=== PATIENT | female | born 1945 | race African-American/Black ===

== ENCOUNTER 2016-09-29 12:44 | Inpatient (IN) ==
[2016-09-29] MEDS ORDERED: MAGNESIUM SULF RIDER 2 GM in PREMIX 1 EACH IV PRN (15:29)
[2016-09-29] MEDS ORDERED: ONDANSETRON 4 MG/2 ML VIAL IV PRN (15:29)
[2016-09-29] MEDS ORDERED: ZALEPLON 5 MG CAPSULE PO PRN (15:29)
[2016-09-29] MEDS ORDERED: ACETAMINOPHEN 325 MG TABLET PO PRN (15:29)
[2016-09-29] MEDS ORDERED: DOCUSATE SODIUM 100 MG CAPSULE PO PRN (15:29)
[2016-09-29] MEDS ORDERED: MAGNESIUM SULF RIDER 4 GM in PREMIX 1 EACH IV PRN (15:29)
[2016-09-29] MEDS: PANTOPRAZOLE 40 MG TABLET PO SCH (15:52)
[2016-09-29 16:17] LABS: Basophils # 0.1 10*3/uL (0.0-0.2); Basophils % 0.7 % (0.0-0.8); Eosinophils # 0.1 10*3/uL (0.0-0.87); Eosinophils % 1.4 % (0.00-10.9); Hematocrit 34.3 VOL% (35.7-47.0); Hemoglobin 11.4 GM/DL (12.0-16.0); Immature Granulocytes % 0.3 %; Immature Granulocytes Absolute 0.03 #; Lymphocytes # 1.7 10*3/uL (1.4-4.0); Lymphocytes % 19.2 % (21.3-54.2); Mean Corpuscular HGB Conc 33.2 GM/DL (32-36); Mean Corpuscular Hemoglobin 29 PG (27-34); Mean Corpuscular Volume 88.4 FL (87-102); Monocytes # 0.7 10*3/uL (0.11-0.8); Monocytes % 8.3 % (1.7-12.7); Neutrophils % 70.1 % (38.7-73.9); Platelet Count 181 T/CUMM (130-400); Red Blood Count 3.88 MC/CUMM (3.8-5.5); Red Cell Distribution Width 13.9 % (9.3-17.3); White Blood Count 8.6 T/CUMM (4-12)
--- NOTE | 2016-09-29 16:24 | Event Note ---
Patient was directly admitted from Dr. Bledsoe's office at cardiovascular [place] [facility] the [facility]. Patient has a history of a syncopal episode on Mother' s Day. She fell and hit her floor and required 17 stitches in her head. She reported atypical chest pain but did report some heaviness with extraordinary activity. She reported pain and swelling of her left leg shortly before her syncopal episode. Dr. Bledsoe ordered venous Dopplers of bilateral lower extremities. Identified was a left lower popliteal vein thrombus. She was directly admitted and underwent CT chest, PE protocol. Impression: No definitive segmental or larger pulmonary embolism. Other findings are similar to the August 10, 2016 as detailed in report. Patient has been given aspirin, Lovenox. Echocardiogram has been ordered as are labs and EKG. Dr. Bledsoe believes patient needs Lexiscan stress testing and I will keep her n.p.o. after midnight tonight for this procedure. Should the patient require cardiac catheterization, will proceed accordingly and afterwards she may be a candidate for NO AC at that point. Until we definitively rule out the need for cardiac catheterization, she will be covered with therapeutic doses of Lovenox twice daily.
[2016-09-29 16:54] LABS: Troponin I Only < 0.015 NG/ML (0.00-0.045)
[2016-09-29 16:56] LABS: Albumin 3.7 G/DL (3.4-5.0); Bilirubin,Total 0.5 MG/DL (0.2-1.0); Calcium 8.8 MG/DL (8.5-10.1); Osmolality,Calculated 280.4 MOS/KG (273-304); Potassium 3.5 MMOL/L (3.5-5.1); Thyroid Stimulating Hormone 1.45 uIU/ml (0.358-3.74)
[2016-09-29] MEDS: SODIUM CHLORIDE 0.45% 1,000 ML IV SCH (16:57)
[2016-09-29] MEDS: TAMOXIFEN 10 MG TABLET PO SCH (16:57)
[2016-09-29] MEDS: METOPROLOL TARTRATE 25 MG TABLET PO SCH ×2 (16:57→22:18)
[2016-09-29] MEDS: ENOXAPARIN 80 MG/0.8 ML SYRINGE SUBCUT SCH (16:57)
[2016-09-29 20:44] LABS: Apearance,Urine CLEAR (Clear); Bacteria,Urine Occasional /HPF (Few); Bilirubin,Urine Negative (Negative); Blood, Urine Negative (Negative); Glucose,Urine (UA) Negative (Negative); Ketones,Urine Negative (Negative); Mucus,Urine Occasional /LPF (Occasional); Nitrite,Urine Negative (Negative); Protein,Urine Negative; RBC,Urine 1 /HPF (0-4); Squamous Epithelial Cell,Urine Occasional /HPF (0-10); Urine Color Straw (Yellow); Urine Specific Gravity 1.018 (1.001-1.035); Urine Urobilinogen < 2.0 EU/DL (0.2-1.0); WBC,Urine 1 /HPF (0-6)
[2016-09-30 00:53] LABS: Troponin I Only < 0.015 NG/ML (0.00-0.045)
[2016-09-30] MEDS: SODIUM CHLORIDE 0.45% 1,000 ML IV SCH (02:12)
[2016-09-30] MEDS: ENOXAPARIN 80 MG/0.8 ML SYRINGE SUBCUT SCH ×2 (05:30→16:43)
[2016-09-30 07:58] LABS: Calcium 8.1 MG/DL (8.5-10.1); Magnesium 1.8 MG/DL (1.8-2.4); Osmolality,Calculated 278.5 MOS/KG (273-304); Potassium 3.6 MMOL/L (3.5-5.1)
[2016-09-30 07:58] LABS: Basophils # 0.1 10*3/uL (0.0-0.2); Basophils % 0.8 % (0.0-0.8); Eosinophils # 0.3 10*3/uL (0.0-0.87); Eosinophils % 3.9 % (0.00-10.9); Hematocrit 30.7 VOL% (35.7-47.0); Hemoglobin 10.3 GM/DL (12.0-16.0); Immature Granulocytes % 0.5 %; Immature Granulocytes Absolute 0.03 #; Lymphocytes # 1.4 10*3/uL (1.4-4.0); Lymphocytes % 21.4 % (21.3-54.2); Mean Corpuscular HGB Conc 33.6 GM/DL (32-36); Mean Corpuscular Hemoglobin 30 PG (27-34); Mean Corpuscular Volume 90.6 FL (87-102); Mean Platelet Volume 10.6 FL (9.6-12.0); Monocytes # 0.6 10*3/uL (0.11-0.8); Monocytes % 9.4 % (1.7-12.7); Neutrophils # 4.1 10*3/uL (1.4-7.4); Platelet Count 158 T/CUMM (130-400); Red Blood Count 3.39 MC/CUMM (3.8-5.5); White Blood Count 6.4 T/CUMM (4-12)
[2016-09-30 08:17] LABS: Risk Ratio 1.84; VLDL CHOLESTEROL 14.2 MG/DL
--- NOTE | 2016-09-30 08:20 | EKG Report ---
Stationary ECG Study [facility] Test Date: 09/30/2016 6:51:33 AM Pat Name: SALOMON ALFONSO Department: Room: 280 Gender: F [employer]ipes Assembler: TONY : 1945 Requested by: Deepali Soriano Order Number: [id number] Reading MD: DARIEL ACOSTA Intervals [place] Rate: 85 P: 46 SD: 191 QRS: -9 QRSD: 129 T: 32 QT: 420 QTc: 462 Interpretive Statements SINUS RHYTHM RIGHT BUNDLE BRANCH BLOCK Electronically Signed On 10-03-16 15:18:54 CDT by DARIEL ACOSTA [email or web address]
[2016-09-30 08:37] LABS: Troponin I Only < 0.015 NG/ML (0.00-0.045)
[2016-09-30] MEDS: GLIMEPIRIDE 2 MG TABLET PO SCH (09:05)
[2016-09-30] MEDS: TRIAMTERENE/HCTZ 37.5-25 MG CAPSULE PO SCH (12:56)
[2016-09-30] MEDS: ASPIRIN CHEW 81 MG TABLET PO SCH (14:24)
--- NOTE | 2016-09-30 14:24 | ECHO Report ---
Allison Delacruz Exam Date: 09/30/2016 10:26 Referring Physician: Technologist: Age: 71 Ht (in): Wt (lb): Gender: F Exam Location: [facility] [place] Echo Indications: BP: / HR: Rhythm: Sinus Technical Quality: IMPRESSIONS Technically limited study. Normal left ventricular size, with mild concentric hypertrophy. Abnormal septal motion, with normal systolic function. Estimated left ventricular ejection fraction 55%. Mild left atrial enlargement. Mitral annular calcification. The mitral valve is thickened, with trace insufficiency, without stenosis. Aortic valve sclerosis, without stenosis, with mild insufficiency. MEASUREMENTS (Male / Female) Normal Values 2D ECHO LV Diastolic Diameter PLAX 3.1 cm 4.2 - 5.9 / 3.9 - 5.3 cm LV Systolic Diameter PLAX 2.4 cm LV Fractional Shortening PLAX 21.7 % IVS Diastolic Thickness 1.2 cm 0.6 - 1.0 / 0.6 - 0.9 cm LVPW Diastolic Thickness 1.1 cm 0.6 - 1.0 / 0.6 - 0.9 cm RV Internal Dim ED PLAX 2.4 cm Aortic Root Diameter 2.5 cm LA Systolic Diameter LX 2.6 cm 3.0 - 4.0 / 2.7 - 3.8 cm DOPPLER TR Peak Velocity 252.0 cm/s TR Peak Gradient 25.4 mmHg FINDINGS Left Ventricle Normal left ventricular size, with mild concentric hypertrophy. Abnormal septal motion, with normal systolic function. Estimated left ventricular ejection fraction 55%. Insufficient data to estimate diastolic function. Right Ventricle The right ventricle is normal in size, with normal systolic function. Right Atrium Normal right atrial size. Left Atrium Mildly dilated left atrium. Mitral Valve Mitral annular calcification. The mitral valve is thickened, with trace insufficiency, without stenosis. Aortic Valve Aortic valve sclerosis, without stenosis, with mild insufficiency. Tricuspid Valve Structurally normal valve, with trace insufficiency. Estimated pulmonary artery systolic pressure 35 mmHg. Pulmonic Valve Not visualized. Pericardium No pericardial effusion Aorta Not visualized. Keo Blackwell (Electronically Signed) Final Date: 30 Sep 2016 14:23
[2016-09-30] MEDS: ATORVASTATIN 20 MG TABLET PO SCH (14:25)
[2016-09-30] MEDS: PANTOPRAZOLE 40 MG TABLET PO SCH (14:30)
[2016-09-30] MEDS: METOPROLOL TARTRATE 25 MG TABLET PO SCH ×2 (14:31→22:32)
--- NOTE | 2016-09-30 14:49 | Cardiology Progress Note ---
Assessment and Plan (1) Syncope Status: Acute Assessment and plan: 71-year-old black female, followed by Dr. Bledsoe. Recent syncope. She has DVT , but CT angle angiogram was inconclusive for PE. Right bundle branch block, normal heart rate trend on telemetry. She is wearing the Holter. She also had some intermittent chest pain. No IL. No significant cardiomyopathy on echo. Pulmonary pressure is normal. She does not have orthostatic complaints. -Continue anticoagulation with Lovenox. -Continue aspirin, metoprolol, statin for suspected CAD. -Proceed with pharmacological stress test in a.m. NPO after MN -If she does not have significant CAD, plan to discharge home tomorrow, on anticoagulation. Follow up with Dr. Bledsoe -T2DM. Cont current regimen. -HTN. BPM well controlled. Current Visit: Yes (2) T2DM (type 2 diabetes mellitus) Status: Acute Current Visit: Yes (3) Aortic valve sclerosis Status: Acute Current Visit: Yes (4) DVT (deep venous thrombosis) Status: Acute Current Visit: Yes Cardiology - PN: Subj Interval history: She is feeling better. The left lower extremity is still swollen. Sinus rhythm , occasional sinus tachycardia. Occasional mild chest pain. Blood pressure is stable Exam (Progress Note) - Constitutional Vitals: Period Temp Pulse Resp BP Sys/Lu Pulse Ox Last 24 Hr 97.2 F-99.3 F 79-106 16-20 101-139/51-74 97-100 General appearance: normal weight, over weight - Head Head exam: Present: normal inspection, normocephalic - Eye Eye exam: Absent: conjunctival injection Pupils: Absent: dilated - ENT ENT exam: Present: normal external ear exam - Neck Neck exam: Present: normal inspection - Respiratory Respiratory exam: Present: clear to auscultation bilaterally - Cardiovascular Cardiovascular exam: Present: regular rate and rhythm, systolic murmur - GI/Abdominal GI/Abdominal exam: Present: normal bowel sounds - Extremities Exam Extremities exam: Present: normal inspection, normal capillary refill, edema ( Left lower extremity swollen.) - Neurological Exam Neurological exam: Present: alert, oriented X3 - Psychiatric Psychiatric exam: Present: normal affect, normal mood - Skin Skin exam: Present: normal color, warm. Absent: cyanosis Result/EKG - Labs CBC & BMP: 09/30/16 07:50 05/25/17 06:59 Lab Results: I have reviewed the past 24 hour labs Labs: Laboratory Results - last 24 hr 09/29/16 09/29/16 09/29/16 14:31 15:43 15:43 WBC 8.6 RBC 3.88 Hgb 11.4 L Hct 34.3 L MCV 88.4 MCH 29 MCHC 33.2 RDW 13.9 Plt Count 181 MPV 11.0 Neut % (Auto) 70.1 Lymph % (Auto) 19.2 L [place] % (Auto) 8.3 Eos % (Auto) 1.4 Baso % (Auto) 0.7 Neut # (Auto) 6.0 Lymph # (Auto) 1.7 [place] # (Auto) 0.7 Eos # (Auto) 0.1 Baso # (Auto) 0.1 Immature Gran % 0.3 Nucleated RBC % 0.0 Immature Gran # 0.03 Nucleated RBCs # 0.00 Sodium 140 Potassium 3.5 Chloride 102 Carbon Dioxide 28 Anion Gap 13.5 BUN 19 H Creatinine 1.00 GFR Calculation 70 BUN/Creatinine Ratio 19.00 Glucose 102 POC Glucose 90 Calculated Osmolality 280.4 Calcium 8.8 Magnesium Total Bilirubin 0.50 AST 23 ALT 18 Alkaline Phosphatase 43 L Total Creatine Kinase CK-MB (CK-2) Troponin I B-Natriuretic Peptide Total Protein 7.0 Albumin 3.7 Globulin 3.3 Albumin/Globulin Ratio 1.1 Triglycerides Cholesterol LDL Cholesterol VLDL Cholesterol HDL Cholesterol Heart Disease Risk Ratio TSH 3rd Generation 1.450 Urine Color Urine Appearance Urine pH Ur Specific [place] Urine Protein Urine Glucose (UA) Urine Ketones Urine Blood Urine Nitrate Urine Bilirubin Urine Urobilinogen Urine Leukocytes Urine RBC Urine WBC Ur Squamous Epith Cells Urine Bacteria Urine Mucus Urine Yeast (Budding) Ur Culture Indicated? 09/29/16 09/29/16 09/29/16 15:43 15:43 19:52 WBC RBC Hgb Hct MCV MCH MCHC RDW Plt Count MPV Neut % (Auto) Lymph % (Auto) [place] % (Auto) Eos % (Auto) Baso % (Auto) Neut # (Auto) Lymph # (Auto) [place] # (Auto) Eos # (Auto) Baso # (Auto) Immature Gran % Nucleated RBC % Immature Gran # Nucleated RBCs # Sodium Potassium Chloride Carbon Dioxide Anion Gap BUN Creatinine GFR Calculation BUN/Creatinine Ratio Glucose POC Glucose Calculated Osmolality Calcium Magnesium Total Bilirubin AST ALT Alkaline Phosphatase Total Creatine Kinase 107 CK-MB (CK-2) < 1.0 Troponin I < 0.015 B-Natriuretic Peptide 119 H Total Protein Albumin Globulin Albumin/Globulin Ratio Triglycerides Cholesterol LDL Cholesterol VLDL Cholesterol HDL Cholesterol Heart Disease Risk Ratio TSH 3rd Generation Urine Color Straw Urine Appearance Clear Urine pH 6.0 Ur Specific [place] 1.018 Urine Protein Negative Urine Glucose (UA) Negative Urine Ketones Negative Urine Blood Negative Urine Nitrate Negative Urine Bilirubin Negative Urine Urobilinogen < 2.0 H Urine Leukocytes Negative Urine RBC 1 Urine WBC 1 Ur Squamous Epith Cells Occasional Urine Bacteria Occasional Urine Mucus Occasional Urine Yeast (Budding) Occasional Ur Culture Indicated? Results to follow 09/30/16 09/30/16 09/30/16 00:00 06:59 06:59 WBC RBC Hgb Hct MCV MCH MCHC RDW Plt Count MPV Neut % (Auto) Lymph % (Auto) [place] % (Auto) Eos % (Auto) Baso % (Auto) Neut # (Auto) Lymph # (Auto) [place] # (Auto) Eos # (Auto) Baso # (Auto) Immature Gran % Nucleated RBC % Immature Gran # Nucleated RBCs # Sodium 139 Potassium 3.6 Chloride 103 Carbon Dioxide 27 Anion Gap 12.6 BUN 17 Creatinine 1.00 GFR Calculation 70 BUN/Creatinine Ratio 17.00 Glucose 106 POC Glucose Calculated Osmolality 278.5 Calcium 8.1 L Magnesium 1.8 Total Bilirubin AST ALT Alkaline Phosphatase Total Creatine Kinase 70 D CK-MB (CK-2) < 1.0 Troponin I < 0.015 B-Natriuretic Peptide Total Protein Albumin Globulin Albumin/Globulin Ratio Triglycerides 71 Cholesterol 123 LDL Cholesterol 48.0 VLDL Cholesterol 14.2 HDL Cholesterol 67 H Heart Disease Risk Ratio 1.84 TSH 3rd Generation Urine Color Urine Appearance Urine pH Ur Specific [place] Urine Protein Urine Glucose (UA) Urine Ketones Urine Blood Urine Nitrate Urine Bilirubin Urine Urobilinogen Urine Leukocytes Urine RBC Urine WBC Ur Squamous Epith Cells Urine Bacteria Urine Mucus Urine Yeast (Budding) Ur Culture Indicated? 09/30/16 09/30/16 09/30/16 07:50 07:50 09:03 WBC 6.4 RBC 3.39 L Hgb 10.3 L Hct 30.7 L MCV 90.6 MCH 30 MCHC 33.6 RDW 14.0 Plt Count 158 MPV 10.6 Neut % (Auto) 64.0 Lymph % (Auto) 21.4 [place] % (Auto) 9.4 Eos % (Auto) 3.9 Baso % (Auto) 0.8 Neut # (Auto) 4.1 Lymph # (Auto) 1.4 [place] # (Auto) 0.6 Eos # (Auto) 0.3 Baso # (Auto) 0.1 Immature Gran % 0.5 Nucleated RBC % 0.0 Immature Gran # 0.03 Nucleated RBCs # 0.00 Sodium Potassium Chloride Carbon Dioxide Anion Gap BUN Creatinine GFR Calculation BUN/Creatinine Ratio Glucose POC Glucose 105 Calculated Osmolality Calcium Magnesium Total Bilirubin AST ALT Alkaline Phosphatase Total Creatine Kinase 71 CK-MB (CK-2) < 1.0 Troponin I < 0.015 B-Natriuretic Peptide Total Protein Albumin Globulin Albumin/Globulin Ratio Triglycerides Cholesterol LDL Cholesterol VLDL Cholesterol HDL Cholesterol Heart Disease Risk Ratio TSH 3rd Generation Urine Color Urine Appearance Urine pH Ur Specific [place] Urine Protein Urine Glucose (UA) Urine Ketones Urine Blood Urine Nitrate Urine Bilirubin Urine Urobilinogen Urine Leukocytes Urine RBC Urine WBC Ur Squamous Epith Cells Urine Bacteria Urine Mucus Urine Yeast (Budding) Ur Culture Indicated? 09/30/16 11:20 WBC RBC Hgb Hct MCV MCH MCHC RDW Plt Count MPV Neut % (Auto) Lymph % (Auto) [place] % (Auto) Eos % (Auto) Baso % (Auto) Neut # (Auto) Lymph # (Auto) [place] # (Auto) Eos # (Auto) Baso # (Auto) Immature Gran % Nucleated RBC % Immature Gran # Nucleated RBCs # Sodium Potassium Chloride Carbon Dioxide Anion Gap BUN Creatinine GFR Calculation BUN/Creatinine Ratio Glucose POC Glucose 119 H Calculated Osmolality Calcium Magnesium Total Bilirubin AST ALT Alkaline Phosphatase Total Creatine Kinase CK-MB (CK-2) Troponin I B-Natriuretic Peptide Total Protein Albumin Globulin Albumin/Globulin Ratio Triglycerides Cholesterol LDL Cholesterol VLDL Cholesterol HDL Cholesterol Heart Disease Risk Ratio TSH 3rd Generation Urine Color Urine Appearance Urine pH Ur Specific [place] Urine Protein Urine Glucose (UA) Urine Ketones Urine Blood Urine Nitrate Urine Bilirubin Urine Urobilinogen Urine Leukocytes Urine RBC Urine WBC Ur Squamous Epith Cells Urine Bacteria Urine Mucus Urine Yeast (Budding) Ur Culture Indicated? - EKG EKG results: interpreted by me
[2016-09-30] MEDS: TAMOXIFEN 10 MG TABLET PO SCH (16:45)
[2016-10-01] MEDS: ENOXAPARIN 80 MG/0.8 ML SYRINGE SUBCUT SCH (04:32)
[2016-10-01 06:22] LABS: Basophils # 0.1 10*3/uL (0.0-0.2); Basophils % 0.9 % (0.0-0.8); Eosinophils # 0.4 10*3/uL (0.0-0.87); Eosinophils % 5.2 % (0.00-10.9); Hematocrit 29.9 VOL% (35.7-47.0); Immature Granulocytes % 0.3 %; Immature Granulocytes Absolute 0.02 #; Lymphocytes # 1.3 10*3/uL (1.4-4.0); Lymphocytes % 18.7 % (21.3-54.2); Mean Corpuscular HGB Conc 33.4 GM/DL (32-36); Mean Corpuscular Hemoglobin 30 PG (27-34); Mean Platelet Volume 11.1 FL (9.6-12.0); Monocytes # 0.8 10*3/uL (0.11-0.8); Neutrophils # 4.4 10*3/uL (1.4-7.4); Neutrophils % 62.9 % (38.7-73.9); Platelet Count 165 T/CUMM (130-400); Red Blood Count 3.36 MC/CUMM (3.8-5.5); White Blood Count 6.9 T/CUMM (4-12)
[2016-10-01 06:57] LABS: Calcium 8.4 MG/DL (8.5-10.1); Magnesium 1.8 MG/DL (1.8-2.4); Osmolality,Calculated 281.3 MOS/KG (273-304); Potassium 4.2 MMOL/L (3.5-5.1)
[2016-10-01] MEDS ORDERED: REGADENOSON 0.4 MG/5 ML SYRINGE IV ONE (08:00)
--- NOTE | 2016-10-01 08:01 | Cardiology Progress Note ---
Assessment and Plan - Time spent with patient Time spent with patient: Greater than 30 minutes (1) Chest pain Status: Resolved Assessment and plan: SEE PLAN OF CARE LISTED BELOW Current Visit: Yes (2) Dyslipidemia Status: Chronic Assessment and plan: SEE PLAN OF CARE LISTED BELOW Current Visit: Yes (3) History of lung cancer Status: Chronic Assessment and plan: SEE PLAN OF CARE LISTED BELOW Current Visit: Yes (4) History of breast cancer Status: Chronic Assessment and plan: SEE PLAN OF CARE LISTED BELOW Current Visit: Yes (5) Syncope Status: Acute Assessment and plan: SEE PLAN OF CARE LISTED BELOW Current Visit: Yes (6) T2DM (type 2 diabetes mellitus) Status: Chronic Assessment and plan: SEE PLAN OF CARE LISTED BELOW Current Visit: Yes (7) DVT (deep venous thrombosis) Status: Acute Assessment and plan: SEE PLAN OF CARE LISTED BELOW Current Visit: Yes Cardiology - PN: Subj Interval history: ASSISTANT THERAPY AIDE: DR. BLEDSOE SUMMARY: 71BF directly admitted from clinic by Dr. Bledsoe September 30, 2016 after describing symptoms of syncope, leg swelling and chest pain. She reported atypical chest pain but did Dr. Bledsoe ordered venous dopplers of bilateral lower extremities. Identified was a left lower popliteal vein thrombus. She was directly admitted and underwent CT chest, PE protocol. Impression: No definitive segmental or larger pulmonary embolism. (Other findings are similar to the August 10, 2016 as detailed in report.) She has been maintained on Lovenox until other studies completed. Echocardiogram: EF 55%, PAP 35 mmHg, no significant valvular abnormality. October 02, 2016: Overnight, patient has done well. Denies chest pain, heaviness or tightness. She is NPO for stress testing (Lexiscan) this morning. Labs are stable. Vital signs stable. No arrythmia noted. ASSESSMENT/PLAN: 1. DVT - New diagnosis. Now on therapeutic doses Lovenox. Will be transitioned to NOAC after all studies completed. 2. CHEST PAIN - NPO for stress testing this morning. 3. HYPERTENSION - well controlled. Taking low-dose Metoprolol. 4. HISTORY OF PAF - no arrhythmia/atrial fibrillation during this admission. 5. HISTORY OF SYNCOPE - this occurred Mother's Day 2017. CT head revealed no significant abnormality. 6. HISTORY OF BREAST CANCER - stable 7. HISTORY OF LUNG CANCER - stable 8. DYSLIPIDEMIA - LDL 48. Continue Atorvastatin 9. DIABETES - blood glucose levels well-controlled. Exam (Progress Note) - Constitutional Vitals: Period Temp Pulse Resp BP Sys/Lu Pulse Ox Last 24 Hr 97.2 F-98.6 F 79-103 16-20 98-120/50-60 95-100 Exam: General: [Appears well with no apparent distress.] [Pleasant and cooperative. ] [Appears comfortable.] HEENT: [PERRL, normocephalic, atraumatic. Mucous membranes moist. No jaundice noted. Conjunctiva moist and clear, sclerae anicteric] Neck: No JVD/HJR, no thyromegaly or lymphadenopathy noted. No carotid bruit appreciated Cardiac: [Regular rate and rhythm.] [No obvious murmur rub or gallop.] Lungs: [Clear to auscultation without accessory muscle use to assist the respiratory pattern.] Not requiring oxygen Abdomen: Soft, bowel sounds normoactive. Nontender and nondistended. No abdominal bruit or thrill noted. No masses noted. Musculoskeletal: No fluid collection. Decreased range of motion is noted. Extremities: No clubbing, cyanosis noted. [ No edema noted.] Upper extremity pulses 2+. Lower extremity pulses 2+. Capillary refill less than 3 seconds. Skin: No unusual lesions or rashes. No skin breakdown appreciated. Neuro: Awake, alert and oriented 3. Moves all extremities well without hemiparesis or paralysis. No essential tremor is appreciated. Result/EKG - Labs CBC & BMP: 10/01/16 05:13 10/01/16 05:13 Lab Results: I have reviewed the past 24 hour labs Labs: Laboratory Results - last 24 hr 09/30/16 09/30/16 09/30/16 06:59 06:59 07:50 WBC RBC Hgb Hct MCV MCH MCHC RDW Plt Count MPV Neut % (Auto) Lymph % (Auto) [place] % (Auto) Eos % (Auto) Baso % (Auto) Neut # (Auto) Lymph # (Auto) [place] # (Auto) Eos # (Auto) Baso # (Auto) Immature Gran % Nucleated RBC % Immature Gran # Nucleated RBCs # Sodium 139 Potassium 3.6 Chloride 103 Carbon Dioxide 27 Anion Gap 12.6 BUN 17 Creatinine 1.00 GFR Calculation 70 BUN/Creatinine Ratio 17.00 Glucose 106 POC Glucose Calculated Osmolality 278.5 Calcium 8.1 L Magnesium 1.8 Total Creatine Kinase 71 CK-MB (CK-2) < 1.0 Troponin I < 0.015 Triglycerides 71 Cholesterol 123 LDL Cholesterol 48.0 VLDL Cholesterol 14.2 HDL Cholesterol 67 H Heart Disease Risk Ratio 1.84 09/30/16 09/30/16 09/30/16 07:50 09:03 11:20 WBC 6.4 RBC 3.39 L Hgb 10.3 L Hct 30.7 L MCV 90.6 MCH 30 MCHC 33.6 RDW 14.0 Plt Count 158 MPV 10.6 Neut % (Auto) 64.0 Lymph % (Auto) 21.4 [place] % (Auto) 9.4 Eos % (Auto) 3.9 Baso % (Auto) 0.8 Neut # (Auto) 4.1 Lymph # (Auto) 1.4 [place] # (Auto) 0.6 Eos # (Auto) 0.3 Baso # (Auto) 0.1 Immature Gran % 0.5 Nucleated RBC % 0.0 Immature Gran # 0.03 Nucleated RBCs # 0.00 Sodium Potassium Chloride Carbon Dioxide Anion Gap BUN Creatinine GFR Calculation BUN/Creatinine Ratio Glucose POC Glucose 105 119 H Calculated Osmolality Calcium Magnesium Total Creatine Kinase CK-MB (CK-2) Troponin I Triglycerides Cholesterol LDL Cholesterol VLDL Cholesterol HDL Cholesterol Heart Disease Risk Ratio 09/30/16 10/01/16 10/01/16 15:50 05:13 05:13 WBC 6.9 RBC 3.36 L Hgb 10.0 L Hct 29.9 L MCV 89.0 MCH 30 MCHC 33.4 RDW 14.0 Plt Count 165 MPV 11.1 Neut % (Auto) 62.9 Lymph % (Auto) 18.7 L [place] % (Auto) 12.0 Eos % (Auto) 5.2 Baso % (Auto) 0.9 H Neut # (Auto) 4.4 Lymph # (Auto) 1.3 L [place] # (Auto) 0.8 Eos # (Auto) 0.4 Baso # (Auto) 0.1 Immature Gran % 0.3 Nucleated RBC % 0.0 Immature Gran # 0.02 Nucleated RBCs # 0.00 Sodium 141 Potassium 4.2 Chloride 104 Carbon Dioxide 28 Anion Gap 13.2 BUN 16 Creatinine 0.90 GFR Calculation 79 BUN/Creatinine Ratio 17.00 Glucose 106 POC Glucose 122 H Calculated Osmolality 281.3 Calcium 8.4 L Magnesium 1.8 Total Creatine Kinase CK-MB (CK-2) Troponin I Triglycerides Cholesterol LDL Cholesterol VLDL Cholesterol HDL Cholesterol Heart Disease Risk Ratio - Diagnostic Findings Procedure: Chest x-ray: report reviewed by me, CT: report reviewed by me, Ultrasound: report reviewed by me (Echo) - EKG EKG results: interpreted by me EKG shows: sinus rhythm
--- NOTE | 2016-10-01 08:34 | Event Note ---
Patient underwent Lexiscan stress testing this morning without complaints of chest pain, heaviness or tightness. Due to gait instability and recent diagnosis of lower extremity DVT, treadmill was avoided. No arrhythmia, no ST changes noted. Blood pressure responded appropriately. Now, patient is being transitioned to nuclear medicine for final scan. Dr. Blackwell to read, interpreted and advise.
[2016-10-01] MEDS: METOPROLOL TARTRATE 25 MG TABLET PO SCH (09:07)
[2016-10-01] MEDS: ASPIRIN CHEW 81 MG TABLET PO SCH (09:07)
[2016-10-01] MEDS: PANTOPRAZOLE 40 MG TABLET PO SCH (09:08)
[2016-10-01] MEDS: GLIMEPIRIDE 2 MG TABLET PO SCH (09:08)
[2016-10-01] MEDS: ATORVASTATIN 20 MG TABLET PO SCH (09:08)
[2016-10-01] MEDS: TRIAMTERENE/HCTZ 37.5-25 MG CAPSULE PO SCH (09:08)
[2016-10-01] MEDS ORDERED: METOPROLOL TARTRATE 25 MG TABLET PO SCH (15:12)
--- NOTE | 2016-10-01 15:44 | Discharge Summary ---
Hospital Course - Hospital Course Hospital Course: SUPERVISOR STATEMENT CLERKS: DR. BLEDSOE SUMMARY: [id number] directly admitted from clinic by Dr. Bledsoe September 30, 2016 after describing symptoms of syncope, leg swelling and chest pain. She reported atypical chest pain but did Dr. Bledsoe ordered venous dopplers of bilateral lower extremities. Identified was a left lower popliteal vein thrombus. She was directly admitted and underwent CT chest, PE protocol. Impression: No definitive segmental or larger pulmonary embolism. (Other findings are similar to the August 10, 2016 as detailed in report.) She has been maintained on Lovenox until other studies completed. Echocardiogram: EF 55%, PAP 35 mmHg, no significant valvular abnormality. October 02, 2016: Patient underwent stress testing and received favorable results. During the hospital stay, no arrhythmia noted. Vital signs remained stable. Eliquis was initiated. She is anxious for release home. Having felt she is met maximal medical therapy, patient is being discharged home in stable condition. She will be given a 2 week follow-up with Dr. Bledsoe. At the follow-up visit with Dr. Bledsoe, the following will be obtained, BMP, magnesium , CBC. She will resume all preadmission medications. New medications will include: Eliquis 5 mg orally twice daily. - Time spent with patient Time with patient DS: Greater than 30 minutes Diagnosis - Discharge Diagnosis (1) Chest pain Status: Resolved (2) Dyslipidemia Status: Chronic (3) History of lung cancer Status: Chronic (4) History of breast cancer Status: Chronic (5) Syncope Status: Acute (6) T2DM (type 2 diabetes mellitus) Status: Chronic (7) DVT (deep venous thrombosis) Status: Acute Specialty Discharge - Follow Up or Referrals Follow up with: Brayan Bledsoe MD [Physician] - 2 Weeks (2-3 weeks. BMP, Mg, CBC) Discharge Plan - Discharge Data Disposition: Disch To Home/Self Care Condition at Discharge: Stable Discharge Diet: heart healthy Activity: resume usual activities as tolerated Hygiene: no restrictions Weight Bearing at Discharge: full weight bearing Driving: not until seen by doctor Contact your physician if you experience:: fever over 101, Difficulty voiding, Redness or swelling, Nausea/Vomiting, Shortness of breath, Bleeding, pain uncontrolled by pain medications - Discharge Medications New Metoprolol Tartrate Tab [Lopressor Tab] 25 mg PO BID #60 tablet Apixaban [Eliquis] 5 mg PO BID #60 tablet Atorvastatin [Lipitor] 20 mg PO DAILY #0 tablet Continue Glimepiride 2 mg PO DAILY Calcium (Carb)/Vit D 600-400 [Caltrate 600 + D] 1 tablet PO DAILY Tamoxifen Tab [Nolvadex] 20 mg PO DAILY W/SUPPER Triamterene/Hydrochlorothiazid [Triamterene-Hctz 37.5-25 mg Cp] 1 each PO DAILY - Follow Up or Referral - Forms/Instructions Exam - Constitutional Vitals: Period Temp Pulse Resp BP Sys/Lu Pulse Ox Last 24 Hr 97.4 F-98.6 F 79-103 16-20 95-131/50-61 95-99 Exam: General: [Appears well with no apparent distress.] [Pleasant and cooperative. ] [Appears comfortable.] HEENT: [PERRL, normocephalic, atraumatic. Mucous membranes moist. No jaundice noted. Conjunctiva moist and clear, sclerae anicteric] Neck: No JVD/HJR, no thyromegaly or lymphadenopathy noted. No carotid bruit appreciated Cardiac: [Regular rate and rhythm.] [No obvious murmur rub or gallop.] Lungs: [Clear to auscultation without accessory muscle use to assist the respiratory pattern.] Not requiring oxygen Abdomen: Soft, bowel sounds normoactive. Nontender and nondistended. No abdominal bruit or thrill noted. No masses noted. Musculoskeletal: No fluid collection. Decreased range of motion is noted. Extremities: No clubbing, cyanosis noted. [ No edema noted.] Upper extremity pulses 2+. Lower extremity pulses 2+. Capillary refill less than 3 seconds. Skin: No unusual lesions or rashes. No skin breakdown appreciated. Neuro: Awake, alert and oriented 3. Moves all extremities well without hemiparesis or paralysis. No essential tremor is appreciated. Discharge Results Procedures and tests throughout hospitalization: Pending Orders 10/01/16 04:00 NM bonifacio perf SPECT rest or str IN AM 10/02/16 04:00 BMP w/ Mg [Basic Metabolic Panel w/Mg] IN AM CBC [Comp Blood Count Auto Diff] IN AM 10/03/16 04:00 BMP w/ Mg [Basic Metabolic Panel w/Mg] IN AM CBC [Comp Blood Count Auto Diff] IN AM 10/04/16 04:00 BMP w/ Mg [Basic Metabolic Panel w/Mg] IN AM CBC [Comp Blood Count Auto Diff] IN AM Labs on day of discharge: Labs from last 24 hours 10/01/16 10/01/16 10/01/16 10:53 09:01 05:13 WBC RBC Hgb Hct MCV MCH MCHC RDW Plt Count MPV Neut % (Auto) Lymph % (Auto) [place] % (Auto) Eos % (Auto) Baso % (Auto) Neut # (Auto) Lymph # (Auto) [place] # (Auto) Eos # (Auto) Baso # (Auto) Immature Gran % Nucleated RBC % Immature Gran # Nucleated RBCs # Sodium 141 Potassium 4.2 Chloride 104 Carbon Dioxide 28 Anion Gap 13.2 BUN 16 Creatinine 0.90 GFR Calculation 79 BUN/Creatinine Ratio 17.00 Glucose 106 POC Glucose 159 H 109 H Calculated Osmolality 281.3 Calcium 8.4 L Magnesium 1.8 10/01/16 09/30/16 05:13 15:50 WBC 6.9 RBC 3.36 L Hgb 10.0 L Hct 29.9 L MCV 89.0 MCH 30 MCHC 33.4 RDW 14.0 Plt Count 165 MPV 11.1 Neut % (Auto) 62.9 Lymph % (Auto) 18.7 L [place] % (Auto) 12.0 Eos % (Auto) 5.2 Baso % (Auto) 0.9 H Neut # (Auto) 4.4 Lymph # (Auto) 1.3 L [place] # (Auto) 0.8 Eos # (Auto) 0.4 Baso # (Auto) 0.1 Immature Gran % 0.3 Nucleated RBC % 0.0 Immature Gran # 0.02 Nucleated RBCs # 0.00 Sodium Potassium Chloride Carbon Dioxide Anion Gap BUN Creatinine GFR Calculation BUN/Creatinine Ratio Glucose POC Glucose 122 H Calculated Osmolality Calcium Magnesium - Imaging and Cardiology Cardiology Procedure: report reviewed by me Procedure: Chest x-ray: report reviewed by DS: Provider Date of admission: 09/30/16 07:41 Primary care physician: Moshe Williamson DO Attending physician on admission: Brayan Bledsoe MD Discharging clinician: Deepali Broderick NP Expected date of discharge: 10/01/16
[2016-10-01 16:16] VITALS: BP 107/53
[2016-10-01] MEDS: TAMOXIFEN 10 MG TABLET PO SCH (16:28)
[2016-10-01] MEDS ORDERED: APIXABAN 5 MG TABLET PO SCH (21:00)
--- NOTE | 2016-10-05 07:05 | Nuclear Medicine Report ---
PHARMACOLOGIC STRESS TEST REPORT Test was interpreted by Dr. Keo Blackwell. INDICATION: Chest pain. PROCEDURE: At rest, 10 mCi of 99-Technetium labeled Sestamibi was injected and rest images were obtained. IV Lexiscan was used for stress test as the patient was unable to perform a treadmill due to gait instability and recent debility. A 0.4 mg of Lexiscan was injected IV. Post pharmacological injection, 30 mCi of 99-Technetium labeled Sestamibi was injected and post stress images were obtained. FINDINGS: At rest, sinus rhythm 99 beats per minute, right bundle branch block , blood pressure 118/70. Post Lexiscan injection, heart rate 104 beats per minute, PVCs, blood pressure 122/[address]-T changes, compare to the baseline. The patient had no chest pain. Rest and post pharmacologic stress gated and perfusion images were reviewed. The left ventricle is normal in size, end-diastolic 69 cc, end-systolic volume 19 cc, the calculated left ventricular ejection is 67%. There are no wall motion abnormalities. Perfusion images show no significant motion artifacts, however, significant spillover from the GI affect. There is a small area of moderately decrease activity in the inferior/apical segments at rest, which improves, does not completely normalize post stress. There are no corresponding wall motion abnormalities, this is more suggestive of imaging artifact, rather than old myocardial disease. There is no ischemia. CONCLUSION: 1. CLINICALLY AND ELECTRICALLY NEGATIVE LEXISCAN PHARMACOLOGIC STRESS TEST 2. NORMAL LEFT VENTRICLE SIZE, NORMAL VENTRICLE SYSTOLIC FUNCTION, WITHOUT EVIDENCE OF OLD MYOCARDIAL DISEASE OR ISCHEMIA. 3. THIS IS A LOW RISK TEST. Procedure performed and interpreted at [facility] Department of Radiology. [facility]
== END 2016-10-01 17:00 | disposition home or self-care (01) | DRG 301 ==
LOC: N.TELEN → OBSVTOIN 14:02
PROVIDERS: ADMIT Internal Medicine Interventional Cardiology; ATTEND Internal Medicine Interventional Cardiology

== ENCOUNTER 2017-06-02 10:22 | Inpatient (IN) ==
[2017-06-02] MEDS ORDERED: MORPHINE 2 MG/1 ML SYRINGE IV STA (10:47)
[2017-06-02] MEDS ORDERED: ONDANSETRON 4 MG/2 ML VIAL IV STA (10:47)
[2017-06-02] MEDS ORDERED: METOPROLOL TARTRATE 25 MG TABLET PO STA (10:47)
[2017-06-02] MEDS ORDERED: ASPIRIN 325 MG TABLET PO STA (10:47)
[2017-06-02] MEDS ORDERED: PANTOPRAZOLE 40 MG VIAL IV STA (10:47)
[2017-06-02] MEDS ORDERED: NITROGLYCERIN 2% OINT 1 INCH/GM PACK TOP STA (10:47)
[2017-06-02] MEDS ORDERED: ALUM/MAG/SIMETH/LIDO VISC 1:1 30 ML BOTTLE PO STA (10:47)
[2017-06-02] MEDS ORDERED: METOPROLOL TARTRATE 25 MG TABLET ONE (11:08)
[2017-06-02] MEDS ORDERED: PANTOPRAZOLE 40 MG VIAL IV ONE (11:08)
[2017-06-02] MEDS ORDERED: ONDANSETRON 4 MG/2 ML VIAL ONE (11:08)
[2017-06-02] MEDS ORDERED: NITROGLYCERIN 2% OINT 1 INCH/GM PACK TOP ONE (11:08)
[2017-06-02] MEDS ORDERED: ALUM/MAG/SIMETH/LIDO VISC 1:1 30 ML BOTTLE PO ONE (11:09)
[2017-06-02] MEDS ORDERED: MORPHINE 2 MG/1 ML SYRINGE ONE (11:09)
[2017-06-02] MEDS ORDERED: ASPIRIN 325 MG TABLET ONE (11:09)
[2017-06-02 11:48] LABS: Basophils # 0.1 10*3/uL (0.0-0.2); Basophils % 0.8 % (0.0-0.8); Eosinophils # 0.1 10*3/uL (0.0-0.87); Eosinophils % 1.2 % (0.00-10.9); Hematocrit 34.4 VOL% (35.7-47.0); Hemoglobin 11.4 GM/DL (12.0-16.0); Immature Granulocytes % 0.4 %; Immature Granulocytes Absolute 0.03 #; Lymphocytes # 1.1 10*3/uL (1.4-4.0); Lymphocytes % 14.2 % (21.3-54.2); Mean Corpuscular HGB Conc 33.1 GM/DL (32-36); Mean Corpuscular Hemoglobin 29 PG (27-34); Mean Corpuscular Volume 88.2 FL (87-102); Mean Platelet Volume 10.7 FL (9.6-12.0); Monocytes # 0.5 10*3/uL (0.11-0.8); Neutrophils # 5.7 10*3/uL (1.4-7.4); Neutrophils % 76.4 % (38.7-73.9); Platelet Count 167 T/CUMM (130-400); Red Cell Distribution Width 14.6 % (9.3-17.3); White Blood Count 7.4 T/CUMM (4-12)
[2017-06-02 12:06] LABS: Albumin 3.3 G/DL (3.4-5.0); Bilirubin,Total 0.6 MG/DL (0.2-1.0); Magnesium 1.8 MG/DL (1.8-2.4); Osmolality,Calculated 281.4 MOS/KG (273-304); Total Protein 7.4 G/DL (6.4-8.3)
[2017-06-02 12:07] LABS: PT Patient Result 10.9 SECS
[2017-06-02] MEDS ORDERED: ENOXAPARIN 100 MG/ML SYRINGE SUBCUT STA (12:16)
[2017-06-02] MEDS ORDERED: ENOXAPARIN 80 MG/0.8 ML SYRINGE SUBCUT ONE (13:13)
[2017-06-02 14:05] LABS: Apearance,Urine CLEAR (Clear); Bacteria,Urine Occasional /HPF (Few); Bilirubin,Urine Negative (Negative); Blood, Urine Negative (Negative); Glucose,Urine (UA) Negative (Negative); Ketones,Urine Negative (Negative); Mucus,Urine Occasional /LPF (Occasional); Nitrite,Urine Negative (Negative); Protein,Urine Negative; RBC,Urine 1 /HPF (0-4); Squamous Epithelial Cell,Urine Occasional /HPF (0-10); Urine Color Yellow (Yellow); Urine Urobilinogen < 2.0 EU/DL (0.2-1.0); WBC,Urine 1 /HPF (0-6)
[2017-06-02] MEDS ORDERED: ACETAMINOPHEN 325 MG TABLET PO PRN (15:32)
[2017-06-02] MEDS ORDERED: TAMOXIFEN 10 MG TABLET PO SCH (17:00)
[2017-06-02] MEDS: ATORVASTATIN 20 MG TABLET PO SCH (20:54)
[2017-06-03] MEDS: MAGNESIUM OXIDE 400 MG TABLET PO SCH (08:50)
[2017-06-03] MEDS: TRIAMTERENE/HCTZ 37.5-25 MG CAPSULE PO SCH (08:50)
[2017-06-03] MEDS: LOSARTAN 25 MG TABLET PO SCH (08:50)
[2017-06-03] MEDS ORDERED: RIVAROXABAN 20 MG TABLET PO SCH (09:00)
[2017-06-03] MEDS ORDERED: ENOXAPARIN 40 MG/0.4 ML SYRINGE SUBCUT SCH (13:00)
[2017-06-03] MEDS ORDERED: HEPARIN DRIP 50,000 UNITS/1,000 ML PREMIX IV ONE (13:45)
[2017-06-03] MEDS ORDERED: ceFAZolin 1,000 MG VIAL ONE (13:45)
[2017-06-03] MEDS ORDERED: LIDOCAINE 1% 20 ML VIAL ONE ×2 (13:45→16:08)
[2017-06-03] MEDS ORDERED: MIDAZOLAM 2 MG/2 ML VIAL ONE ×2 (15:00→15:20)
[2017-06-03] MEDS ORDERED: ceFAZolin 1,000 MG in SYRINGE 1 EACH IV ONE (15:00)
[2017-06-03] MEDS ORDERED: fentaNYL 100 MCG/2 ML VIAL ONE ×2 (15:00→15:19)
[2017-06-03] MEDS ORDERED: ceFAZolin 1,000 MG VIAL IRRIG ONE (15:00)
[2017-06-03] MEDS ORDERED: TISSUE ADHESIVE 1 EACH APPLICATOR TOP ONE ×2 (15:54→15:55)
[2017-06-03] MEDS ORDERED: oxyCODONE/ACETAMINOPHEN 5-325 MG TABLET PO PRN (16:24)
[2017-06-03] MEDS: ATORVASTATIN 20 MG TABLET PO SCH (21:06)
[2017-06-03] MEDS: ceFAZolin 1,000 MG in SYRINGE 1 EACH IV SCH (23:26)
[2017-06-04 04:57] LABS: Basophils % 0.7 % (0.0-0.8); Eosinophils # 0.3 10*3/uL (0.0-0.87); Eosinophils % 4.2 % (0.00-10.9); Hematocrit 33.6 VOL% (35.7-47.0); Hemoglobin 10.7 GM/DL (12.0-16.0); Immature Granulocytes % 0.2 %; Immature Granulocytes Absolute 0.01 #; Lymphocytes # 1.1 10*3/uL (1.4-4.0); Lymphocytes % 18.6 % (21.3-54.2); Mean Corpuscular HGB Conc 31.8 GM/DL (32-36); Mean Corpuscular Hemoglobin 29 PG (27-34); Mean Corpuscular Volume 91.8 FL (87-102); Mean Platelet Volume 11.1 FL (9.6-12.0); Monocytes # 0.7 10*3/uL (0.11-0.8); Monocytes % 12.2 % (1.7-12.7); Neutrophils # 3.8 10*3/uL (1.4-7.4); Neutrophils % 64.1 % (38.7-73.9); Platelet Count 125 T/CUMM (130-400); Red Blood Count 3.66 MC/CUMM (3.8-5.5); Red Cell Distribution Width 14.7 % (9.3-17.3); White Blood Count 5.9 T/CUMM (4-12)
[2017-06-04 05:13] LABS: Calcium 8.5 MG/DL (8.5-10.1); Magnesium 1.9 MG/DL (1.8-2.4); Osmolality,Calculated 280.4 MOS/KG (273-304); Potassium 4.2 MMOL/L (3.5-5.1)
[2017-06-04] MEDS: ceFAZolin 1,000 MG in SYRINGE 1 EACH IV SCH (06:38)
[2017-06-04] MEDS: LOSARTAN 25 MG TABLET PO SCH (08:41)
[2017-06-04] MEDS: MAGNESIUM OXIDE 400 MG TABLET PO SCH (08:42)
[2017-06-04] MEDS: TRIAMTERENE/HCTZ 37.5-25 MG CAPSULE PO SCH (08:42)
[2017-06-04] MEDS ORDERED: CALCIUM (CARBONATE)/VITAMIN D 500 MG-200 UNIT TABLET PO SCH (09:00)
[2017-06-04] MEDS ORDERED: MULTIVITAMIN (CENTRUM) TABLET PO SCH (09:00)
[2017-06-04 13:32] VITALS: BP 133/58
[2017-06-05] MEDS ORDERED: ASPIRIN EC 81 MG TABLET PO SCH (09:00)
== END 2017-06-04 13:38 | disposition home or self-care (01) | DRG 244 ==
LOC: EDBD → EDUNIT# → N.ED 10:22 → N.EDINP 12:39 → N.TELEN 15:31
PROVIDERS: ADMIT Internal Medicine Geriatric Medicine; ATTEND Internal Medicine Geriatric Medicine